=== PATIENT | male | born 1985 | race Caucasian/White ===

== ENCOUNTER 2017-03-07 10:33 | Emergency (ER) | payer BC ==
[2017-03-07 13:10] VITALS: BP 121/73
--- NOTE | 2017-03-07 13:13 | UC ---
[facility] HPI - HPI Summary HPI Summary: 31 YEAR OLD MALE PRESENTS WITH RIGHT SIDED JAW PAIN/SWELLING. - History of Current Complaint Chief Complaint: UCDentalProblem Stated Complaint: SWOLLEN SIDE OF FACE Time Seen by Provider: 03/07/17 13:10 Hx Obtained From: Patient Onset/Duration: Sudden Onset Severity: Moderate Pain Scale Used: 0-10 Numeric - 6 - Allergies/Home Medications Allergies/Adverse Reactions: Allergies Allergy/AdvReac Type Severity Reaction Status Date / Time No Known Allergies Allergy Verified 03/07/17 12:12 PMH/Surg Hx/FS Hx/Imm Hx Previously Healthy: Yes - Surgical History Surgical History: None - Social History Alcohol Use: Occasionally Substance Use Type: None Smoking Status (MU): Never Smoked Tobacco Review of Systems Constitutional: Negative Skin: Negative Eyes: Negative ENT: Dental Pain, Other - RIGHT PAROTID GLAND SWELLING Respiratory: Negative Cardiovascular: Negative Gastrointestinal: Negative Genitourinary: Negative Motor: Negative Neurovascular: Negative Musculoskeletal: Negative Neurological: Negative Psychological: Negative All Other Systems Reviewed And Are Negative: Yes Physical Exam Triage Information Reviewed: Yes Vital Signs: Initial Vital Signs Temp 37.3 C 03/07/17 12:08 Pulse 79 03/07/17 12:08 Resp 18 03/07/17 12:08 BP 120/82 03/07/17 12:08 Pulse Ox 100 03/07/17 12:08 Vital Signs Reviewed: Yes Eye Exam: Normal ENT Exam: Normal Dental: Positive: Abscess @, Other: - RIGHT PAROTID GLAND SWELLING Neck exam: Normal Neck: Positive: 1 Respiratory Exam: Normal Cardiovascular Exam: Normal Abdominal Exam: Normal Musculoskeletal Exam: Normal Neurological Exam: Normal Psychological Exam: Normal Skin Exam: Normal Dental Complaint Course/Dx - Differential Dx/Diagnosis Provider Diagnoses: RIGHT PAROTID GLAND SWELLING. RIGHT DENTAL ABSCESS Discharge - Discharge Plan Condition: Stable Disposition: HOME Prescriptions: Chlorhexidine MW 0.12% 473ML* [Peridex Mouth Wash 0.12%*] 15 ml MT TID PC #1 btl Dicloxacillin CAP* [Dynapen CAP*] 500 mg PO QID #40 cap predniSONE TAB* [Deltasone TAB*] 40 mg PO DAILY #10 tab Patient Education Materials: Parotid Duct Obstruction (ED), Sialoadenitis (ED) Referrals: Jose Zuniga MD [Medical Doctor] -
== END 2017-03-07 13:25 | disposition home or self-care (01) ==
LOC: UCEAST 10:33
DX: K04.7 Periapical abscess without sinus (principal)
CPT/HCPCS: 99202; G0463